=== PATIENT | female | born 1980 | race Two or more races ===

== ENCOUNTER → 2024-09-22 | Outpatient (CLI) | payer MEDICAID, SELFPAY ==
--- NOTE | 2024-09-22 09:00 | XR_ITS ---
Examination: CT right shoulder, without contrast. 2-D sagittal reconstructions. 2-D coronal reconstructions. 3-D reconstructions. Date and time of exam:September 22, 2024 0904 hours INDICATIONS: Right shoulder pain and palpable lump with numbness for years CTDI: vol (mGy):9.90 DLP: (mGycm):245 Technique: Multiple 1.25 mm axial sections of the right shoulder without intravenous contrast have been obtained. 2-D sagittal and coronal reconstructions have been obtained. 3-D reconstructions have been obtained. Low dose protocols were performed. One or more of the following dose reduction techniques were used; automated exposure control, adjustment of the mA and/or KV according to patient size, use of iterative reconstruction technique. Findings: Mild osteoarthritis glenohumeral joint No shoulder fracture or dislocation No AC joint separation Bicipital groove humeral head is intact No soft tissue mass, no foreign body IMPRESSION: Mild osteoarthritis glenohumeral joint Consider MRI shoulder without contrast follow-up
== END | disposition home or self-care (01) ==
PROVIDERS: Referring Provider Nurse Practitioner Acute Care; Visit Provider Nurse Practitioner Acute Care
DX: M19.011 Primary osteoarthritis, right shoulder (principal)
CPT/HCPCS: 73201; A4649; Q9967